=== PATIENT | female | born 1965 | race Caucasian/White ===

== ENCOUNTER 2021-02-28 05:03 | Emergency (ER) | payer BC ==
[~2021-02-28] VITALS: Ht 165.1 cm; Wt 90.7 kg
[2021-02-28] MEDS ORDERED: KETOROLAC 30 MG/1 ML ONE (05:43)
[2021-02-28] MEDS ORDERED: DIPHENHYDRAMINE 50 MG/ML, 1ML ONE (05:43)
[2021-02-28] MEDS ORDERED: ONDANSETRON 2MG/ML, 2ML ONE (05:44)
[2021-02-28] MEDS ORDERED: SODIUM CHLORIDE FLUSH 10ML SYR IVF ONE (06:00)
[2021-02-28] MEDS ORDERED: SODIUM CHLORIDE 0.9% 1,000ML IVBOLUS ONE (06:00)
[2021-02-28] MEDS ORDERED: ONDANSETRON 2MG/ML, 2ML IVPush ONE (06:00)
[2021-02-28] MEDS ORDERED: KETOROLAC 30 MG/1 ML IVPush ONE (06:00)
[2021-02-28] MEDS ORDERED: DIPHENHYDRAMINE 50 MG/ML, 1ML IVPush ONE (06:00)
[2021-02-28 06:27] VITALS: BP 105/54
--- NOTE | 2021-02-28 06:49 | NUR ---
REPORT FROM VLAD GRANADO
[2021-02-28] MEDS ORDERED: PROCHLORPERAZINE 5 MG/ML, 2ML ONE (06:54)
[2021-02-28] MEDS ORDERED: PROCHLORPERAZINE 5 MG/ML, 2ML IVPush ONE (07:00)
== END 2021-02-28 07:52 ==
LOC: ED 07:51
DX: G43.001 Migraine without aura, not intractable, with status migrainosus (principal); R11.0 Nausea; E11.9 Type 2 diabetes mellitus without complications
CPT/HCPCS: 96361; 96374; 96375; 99284; J0780; J1200; J1885; J2405; J7030